=== PATIENT | female | born 1950 | race Caucasian/White ===

== ENCOUNTER 2024-05-09 17:10 | Emergency (ER) | payer MEDICARE, MEDICAID, SELFPAY ==
[2024-05-09 17:23] VITALS: BP 208/99; PULSE 89; RESP 22; TEMP 36.6; O2SAT 97; BMI 27.4
--- NOTE | 2024-05-09 20:32 | ED.BACK ---
HPI - Back Pain/Injury General Chief Complaint: Back Pain/Injury Stated Complaint: severe back spasms Time Seen by Provider: 05/09/24 20:29 Source: patient History of Present Illness HPI Narrative: 73-year-old female complains of left lower back spasms, similar to prior presentations, 4 months ago had similar episode in [facility], prior spinal imaging recalled, no lesions recalled, responded to IV Dilaudid at that time. She has not recall any new activities. Pain to legs or perineum, no incontinence of urine or stool. She has history of skin cancers, denies any known back cancers. No injury trauma falls or new activities. Related Data Previous Rx's Medication Instructions Recorded methocarbamol 500 mg tablet 500 mg PO TID 7 days #21 tabs 05/09/24 Allergies Allergy/AdvReac Type Severity Reaction Status Date / Time Opioids - Morphine Analogues AdvReac Vomiting Verified 05/09/24 17:23 Review of Systems Review of Systems Narrative: see HPI Patient History Social History Smoking Status: Never smoker Smoking Status: Never smoker Substance Use Type: does not use Exam Narrative Exam Narrative: GENERAL: Well-developed patient, in mild distress. HEAD: Atraumatic. Normocephalic. EYES: Pupils equal round and reactive. Extraocular motions intact. No scleral icterus. No injection or drainage. ENT: Nose without bleeding, purulent drainage. Throat without erythema, tonsillar hypertrophy or exudate. Airway patent. NECK: Trachea midline. Non tender CARDIOVASCULAR: Regular rate and rhythm without murmurs, gallops, or rubs. RESPIRATORY: Clear to auscultation. Breath sounds equal bilaterally. No wheezes, rales, or rhonchi. GASTROINTESTINAL: Abdomen soft, non-tender, nondistended. EXTREMITIES: No edema or joint tenderness. BACK: Nontender without deformity or crepitance. No flank tenderness. NEURO: AOx3. SKIN: No rash or erythema of visible areas. No vesicle like hepatic lesions trunk or extremity Initial Vital Signs Initial Vital Signs: Vital Signs Temperature 97.8 F 05/09/24 17:23 Pulse Rate 89 05/09/24 17:23 Respiratory Rate 22 05/09/24 17:23 Blood Pressure 208/99 H 05/09/24 17:23 Pulse Oximetry 97 05/09/24 17:23 Oxygen Delivery Method Room Air 05/09/24 17:23 Course Orders Ordered: Discontinued Medications Hydromorphone HCl (Hydromorphone 0.5 Mg Inj) 0.5 mg IV NOW ONE Stop: 05/09/24 20:57 Last Admin: 05/09/24 21:00 Dose: 0.5 mg Documented By: Methocarbamol (Methocarbamol 500 Mg Tablet) 500 mg PO NOW ONE Stop: 05/09/24 20:32 Last Admin: 05/09/24 20:54 Dose: 500 mg Documented By: Ondansetron HCl (Ondansetron 4 Mg/2 Ml Inj) 4 mg IV NOW ONE Stop: 05/09/24 20:59 Last Admin: 05/09/24 21:00 Dose: 4 mg Documented By: Vital Signs Vital signs: Vital Signs - 8 hr 05/09/24 20:41 05/09/24 20:51 05/09/24 20:51 Pulse Rate 83 90 Respiratory Rate 18 Blood Pressure 190/83 H Pulse Oximetry 98 98 05/09/24 21:00 05/09/24 21:00 Pulse Rate 91 H Respiratory Rate 18 Blood Pressure 181/79 H Pulse Oximetry 99 MDM - Back Pain/Injury Lab Data Attestation: I reviewed the patient's lab results. Labs: Urine Dip Bedside Urine Glucose Negative Bedside Urine Bilirubin - Negative Bedside Urine Ketone - Negative Urine Specific [place] 1.030 Bedside Urine Occult Blood - Negative Bedside Urine pH 6.0 Bedside Urine Protein - Negative Bedside Urine Urobilinogen - Negative Bedside Urine Nitrite - Negative Bedside Urine Leukocytes - Negative Esterase [facility] Narrative Medical decision making narrative: 73-year-old female with left lower lumbar back spasms, similar to prior events, declines CT spinal imaging after discussion. Urine dip negative. IV Dilaudid/Zofran. P.o. Robaxin now, she seems amenable to trying this as an outpatient, Rx sent to local pharmacy for filling tomorrow, before she/family will be going back to the home area [facility] in a few days. Urinalysis negative. Improved, home with friends/family, return precautions discussed Discharge Plan Departure Patient Disposition: Home Clinical Impression: Lumbar strain Activity Restrictions/Additional Instructions: Left low back pain spasm, no injury new activities recalled. Prior episodes similar. We discussed CT imaging available tonight in the emergency department of the spine, declined for now. Pain meds given, symptoms improved. Trial of muscle relaxant Robaxin/methocarbamol to use if you find this helpful. Dose given in the emergency department as well, prescription sent to local pharmacy free to fill tomorrow, before your journey home to [facility] next few days. Consider recheck with your regular providers in your home [facility]. Return earlier to this/nearest emergency department for any change worsening symptoms or any concerns prior Prescriptions: New methocarbamol 500 mg tablet 500 mg PO TID 7 Days Qty: 21 0RF Referrals: Miscellaneous,Doctor, [Primary Care Provider] - Stand Alone Forms: Patient Portal/API
[2024-05-09 20:41] VITALS: PULSE 83; RESP 18; O2SAT 98
[2024-05-09 20:51] VITALS: BP 190/83; PULSE 90; O2SAT 98
[2024-05-09] MEDS: methocarbamoL 500 MG TABLET PO (20:54)
[2024-05-09 21:00] VITALS: BP 181/79; PULSE 91; RESP 18; O2SAT 99
[2024-05-09] MEDS: ONDANSETRON 4 MG/2 ML INJ IV (21:00)
[2024-05-09] MEDS: HYDROMORPHONE 0.5 MG INJ IV (21:00)
== END 2024-05-09 21:28 | disposition home or self-care (01) ==
PROVIDERS: Emergency Provider Emergency Medicine
DX: S39.012A Strain of muscle, fascia and tendon of lower back, initial encounter (principal)
CPT/HCPCS: 81003; 96374; 96375; 99284; J1170; J2405